=== PATIENT | male | born 1960 | race African-American/Black ===

== ENCOUNTER 2017-01-12 08:46 | Day surgery (SDC) | payer OTHER ==
[~2017-01-12] VITALS: Ht 190.5 cm; Wt 120.1 kg
[2017-01-12] VITALS (8 sets, daily range): BP systolic 154–172; BP diastolic 96–108; PULSE 48–56; RESP 18; TEMP 97.3–98.6; O2SAT 97–100
[2017-01-12] MEDS ORDERED: POVIDONE IODINE 5% (ANTISEPSIS KIT) 4 APPLICATIONS EACH NARE PRN (09:30)
[2017-01-12] MEDS ORDERED: INSULIN HUMAN REGULAR 1,000 UNITS/10 ML VIAL SQ PRN (09:30)
[2017-01-12] MEDS ORDERED: CHLORHEXIDINE GLUCONATE 2 % 1 PACK (2 CLOTHS) TOPICAL PRN (09:30)
[2017-01-12] MEDS ORDERED: METOPROLOL TARTRATE 25 MG TAB PO PRN (09:30)
[2017-01-12] MEDS ORDERED: SODIUM CHLORID 0.9% 500 ML IV PRN (09:30)
[2017-01-12] MEDS ORDERED: LACTATED RINGER'S 1000 ML IV PRN (09:30)
[2017-01-12 09:44] LABS: AUTOMATED NEUTROPHIL # 4.4 TH/MM3 (1.8-7.7); BASOPHIL % 0.6 % (0.0-2.0); EOSINOPHIL # 0.1 TH/MM3 (0-0.4); EOSINOPHIL % 0.8 % (0.0-4.0); HEMATOCRIT 39.4 % (39.0-51.0); HEMO FLAGS DIFF FINAL; LYMPH % 14.9 % (9.0-44.0); LYMPHOCYTE # 0.9 TH/MM3 (1.0-4.8); MEAN CELL VOLUME 88.3 FL (80.0-100.0); MEAN CORPUSCULAR HEMOGLOBIN 30.2 PG (27.0-34.0); MEAN CORPUSCULAR HGB CONC 34.2 % (32.0-36.0); NEUT % 74.7 % (16.0-70.0); PLATELET COUNT 140 TH/MM3 (150-450); RED BLOOD COUNT 4.47 MIL/MM3 (4.50-5.90); RED CELL DISTRIBUTION WIDTH 14.9 % (11.6-17.2); WHITE BLOOD COUNT 5.9 TH/MM3 (4.0-11.0)
[2017-01-12] MEDS ORDERED: LISI-515 PO (09:45)
[2017-01-12] MEDS ORDERED: CHLORHEXIDINE GLUCONATE 2 % 1 PACK (2 CLOTHS) TOPICAL SCH (09:45)
[2017-01-12] MEDS ORDERED: AMLO5TAB2 PO (09:45)
[2017-01-12] MEDS ORDERED: POVIDONE IODINE 5% (ANTISEPSIS KIT) 4 APPLICATIONS EACH NARE SCH (09:45)
[2017-01-12] MEDS ORDERED: ASPI1TAB69 PO (09:45)
[2017-01-12] MEDS ORDERED: VANCOMYCIN 1000 MG/NS 250 ML IV SCH ×2 (09:45)
[2017-01-12] MEDS ORDERED: LORazepam 1 MG TAB SL SCH (09:45)
[2017-01-12] MEDS ORDERED: SIMV40TA PO (09:45)
[2017-01-12 09:50] LABS: APTT (PATIENT) 26.3 SEC (24.3-30.1); PROTHROMBIN TIME - PATIENT 11.3 SEC (9.8-11.6)
[2017-01-12] MEDS ORDERED: MUPIROCIN 2% OINT 1 APPLIC/GM SYR NASAL SCH (10:00)
[2017-01-12] MEDS ORDERED: NS 1000 ML IV SCH (10:00)
[2017-01-12 10:05] LABS: BICARBONATE 26.2 MEQ/L (21.0-32.0); POTASSIUM 3.8 MEQ/L (3.5-5.1)
[2017-01-12] MEDS ORDERED: LIDOCAINE HCL 2% 50 ML VIAL ONE (13:14)
[2017-01-12] MEDS ORDERED: VANCOMYCIN 500 MG VIAL ONE (13:14)
[2017-01-12] MEDS ORDERED: DO NOT ADM ANY ANTICOAGULANT DRUGS PRN (13:30)
--- NOTE | 2017-01-12 14:10 | PD.CARD ---
DUAL PPM IMPLANTATION PROCEDURE DATE: Jan 12, 2017 DUAL PPM IMPLANTATION PROCEDURE: Dual chamber permanent pacemaker implantation. INDICATIONS FOR PROCEDURE: Mr. Jerez is a 56 -year-old male with hx of near syncope, shortness of breath, AV block who undergo pacer insertion. He is not on any negative chronotropic medication. The risks, the nature and the benefit of the procedure were clearly stated to him . The risks include pneumothorax, cardiac perforation, stroke and even . He understood and agreed to proceed. PROCEDURE After written informed consent was obtained, the patient was transferred to the EP lab where he was prepped and draped in the usual sterile fashion. Conscious sedation was initiated and maintained throughout the procedure by the anesthesiologist. Once sedation was verified, the left infraclavicular area was with 2% Xylocaine. Using modified Seldinger technique, the left subclavian vein was cannulated on two occasions and two guidewires were advanced. Then, using a #11 blade scalpel, a 2 cm was made two fingerbreadths below the left clavicle. This incision was then taken down through the deep fascial layer using Bovie cautery and blunt dissection. Into the inferomedial direction, device pocket was dissected, then the wire was dissected into the pocket. A 2- 0 Vicryl suture was placed around the wire to prevent backbleeding. At this point, over the lateral wire, an 7-Italian dilator and introducer was advanced. As the dilator and wire were removed, an active fixation right ventricular pacing and sensing lead was advanced. After adequate pacing and sensing thresholds were obtained, the lead was secured in the pocket using 2-0 Ethibond suture. Then, over the remaining wire, an 7-Italian dilator and introducer was advanced. As the dilator and wire were removed, an active fixation right atrial pacing and sensing lead was advanced. After adequate pacing and sensing thresholds were obtained, the lead was secured into the pocket using 2-0 Ethibond suture. At that point, the pocket was copiously irrigated using antibiotic solution. This was connected to the generator and placed into the pocket. I did proceed with wound closure. The deep fascial layer was approximated using 2-0 Vicryl suture in a continuous fashion. The subcutaneous layer was approximated with 2-0 Vicryl suture in a continuous fashion. The subcuticular layer was approximated with 2-0 Vicryl suture in a continuous fashion. Dermabond adhesive was applied to the wound followed by sterile pressure dressing. There was no complication. The patient tolerated procedure. Blood loss minimal. IMPLANTED HARDWARE The permanent pacemaker is a [employer]ro[employer]. Model # 293025 serial number [id number]. The right atrial pacing and sensing lead is a [employer]ron[employer] model number 769206, serial number [id number]. The right ventricular pacing and sensing lead is a [employer]ik model number [id number] , serial number [id number]. THRESHOLDS The right atrial pacing threshold in the bipolar mode was 1.0 @ 0.5 milliseconds, lead impedance 487 ohms and P-wave at 2.1 millivolts. The right ventricular pacing threshold in the bipolar mode was 0.6 @ 0.4 milliseconds, lead impedance 665 ohms and R-wave at the 14.5 millivolts. SETTINGS The device was set in the DDD60, upper limit 140 beats per minute. Hysteresis and mode switch are on. CONCLUSIONS: Successful permanent pacemaker implantation, COMMENT AND RECOMMENDATION The patient will be transferred to the telemetry unit. He will be observed. When stable, he can be discharged home. Sae Padilla MD Jan 12, 2017 14:10
[2017-01-12] MEDS ORDERED: ONDANSETRON HCL 4 MG/2 ML VIAL IV PRN (14:15)
[2017-01-12] MEDS ORDERED: TEMAZEPAM 15 MG CAP PO PRN (14:15)
[2017-01-12] MEDS ORDERED: ACETAMINOPHEN/CODEINE 300 MG/30 MG TAB PO PRN (14:15)
[2017-01-12] MEDS ORDERED: ceFAZolin 2 GM PREMIX 50 ML IV SCH (14:15)
--- NOTE | 2017-01-12 15:34 | RADRPT ---
EXAM DATE/TIME: 01/12/2017 15:11 [place] COMPARISON: No previous studies available for comparison. INDICATIONS : Post pacemaker MEDICAL HISTORY : Hypertension SURGICAL HISTORY : None. ENCOUNTER: Initial ACUITY: 1 day PAIN SCORE: 10 LOCATION: Bilateral chest FINDINGS: A single view of the chest demonstrates the lungs to be symmetrically aerated without evidence of mas s, infiltrate or effusion. The cardiomediastinal contours are unremarkable. Osseous structures are intact. CONCLUSION: Normal examination. Left subclavian bipolar pacer in good position Shmuel Abbott MD on January 12, 2017 at 15:31 Board Certified Radiologist. This report was verified electronically.
[2017-01-12] MEDS ORDERED: LABETALOL HCL 100 MG/20 ML VIAL IV PRN (15:45)
[2017-01-12] MEDS ORDERED: ENALAPRILAT 1.25 MG/ML VIAL IV PUSH PRN (15:45)
[2017-01-12] MEDS ORDERED: PROPOFOL 200 MG/20 ML AMP OTHER ONE (16:44)
--- NOTE | 2017-01-12 17:18 | EKG ---
Date Performed: 01/12/2017 Time Performed: 15:14:42 PTAGE: 56 years EKG: Probable atrial sensed, ventricular paced rhythm Abnormal ECG PREVIOUS TRACING : 01/12/2017 09.48 Compared to previous tracing, ventricular pacing is now christopher dent. DOCTOR: Stephen Fried Interpretating Date/Time 01/12/2017 17:16:40
--- NOTE | 2017-01-12 17:23 | EKG ---
Date Performed: 01/12/2017 Time Performed: 09:48:10 PTAGE: 56 years EKG: Sinus bradycardia with 1st degree A-V block Prolonged QT interval Consider left atrial abno rmality LVH with secondary repolarization abnormality Extensive ST-T changes may be due to hypertroph y and/or ischemia Abnormal ECG NO PREVIOUS TRACING DOCTOR: Jaquan Galindo Interpretating Date/Time 01/12/2017 17:21:54
[2017-01-12] MEDS: ASPIRIN EC 81 MG TABEC PO SCH (18:07)
[2017-01-12] MEDS: LISINOPRIL 20 MG TAB PO SCH (18:08)
[2017-01-12] MEDS: ACETAMINOPHEN/CODEINE 300 MG/30 MG TAB PO PRN ×2 (18:08→22:33)
[2017-01-12] MEDS: amLODIPine BESYLATE 5 MG TAB PO SCH (18:08)
[2017-01-12] MEDS ORDERED: PRAVASTATIN SOD 80 MG TAB PO SCH (21:00)
[2017-01-13] VITALS (9 sets, daily range): BP systolic 149–159; BP diastolic 98–108; PULSE 48–54; RESP 16–18; TEMP 97.7; O2SAT 98
[2017-01-13] MEDS: ACETAMINOPHEN/CODEINE 300 MG/30 MG TAB PO PRN (04:07)
[2017-01-13] MEDS ORDERED: LEVOFLOXACIN 500 MG PREMIX INJ 100 ML IV ONE (08:00)
[2017-01-13] MEDS: amLODIPine BESYLATE 5 MG TAB PO SCH (08:12)
[2017-01-13] MEDS: LISINOPRIL 20 MG TAB PO SCH (08:12)
[2017-01-13] MEDS: ASPIRIN EC 81 MG TABEC PO SCH (08:13)
--- NOTE | 2017-01-13 08:25 | PD.CARD.PN ---
Subjective Subjective Remarks Denies pain, dyspnea. Objective Medications Item Value Date Time Pravastatin Sodium 80 mg 01/12/17 2100 (Pravachol) HS/PO 01/12/172144 Amlodipine 5 mg 01/12/17 1800 Besylate DAILY/PO 01/13/17 08 (Norvasc) Aspirin 81 mg 01/12/17 1800 (Ecotrin Ec) DAILY/PO 01/13/17812 Lisinopril 20 mg 01/12/17 1800 (Prinivil) DAILY/PO 01/13/17 08 Vital Signs / I&O Vital Signs Date Time Temp Pulse Resp B/P Pulse Ox O2 Delivery O2 Flow Rate FiO2 01/13/17 08:00 50 01/13/17 07:00 97.7 48 16 149/98 98 01/13/17 07:00 49 01/13/17 06:00 52 01/13/17 05:00 52 01/13/17 04:00 52 01/13/17 03:00 50 01/13/17 03:00 97.7 54 18 159/108 98 01/13/17 02:00 48 01/13/17 01:00 50 01/13/17 00:00 48 01/12/17 23:00 50 01/12/17 23:00 97.3 50 18 166/108 99 01/12/17 22:00 50 01/12/17 21:00 48 01/12/17 20:00 56 01/12/17 19:00 98.2 55 18 172/106 99 01/12/17 19:00 51 01/12/17 18:03 56 01/12/17 16:35 97.5 50 18 156/101 100 01/12/17 14:27 100 Room Air 01/12/17 09:28 98.6 48 18 154/96 97 I/O 01/12/17 01/12/17 01/12/17 01/13/17 01/13/17 01/13/17 07:00 15:00 23:00 07:00 15:00 23:00 Intake Total 240 ml 700 ml Output Total 1350 ml Balance 240 ml -650 ml Intake Oral 240 ml 700 ml Output Urine Total 1350 ml Physical Exam Pacer site clean, dry, intact, nontender. No hematoma. Laboratory Laboratory Tests Test 01/12/17 09:20 White Blood Count 5.9 TH/MM3 Red Blood Count 4.47 MIL/MM3 Hemoglobin 13.5 GM/DL Hematocrit 39.4 % Mean Corpuscular Volume 88.3 FL Mean Corpuscular Hemoglobin 30.2 PG Mean Corpuscular Hemoglobin 34.2 % Concent Red Cell Distribution Width 14.9 % Platelet Count 140 TH/MM3 Mean Platelet Volume 9.8 FL Neutrophils (%) (Auto) 74.7 % Lymphocytes (%) (Auto) 14.9 % Monocytes (%) (Auto) 9.0 % Eosinophils (%) (Auto) 0.8 % Basophils (%) (Auto) 0.6 % Neutrophils # (Auto) 4.4 TH/MM3 Lymphocytes # (Auto) 0.9 TH/MM3 Monocytes # (Auto) 0.5 TH/MM3 Eosinophils # (Auto) 0.1 TH/MM3 Basophils # (Auto) 0.0 TH/MM3 CBC Comment DIFF FINAL Differential Comment Prothrombin Time 11.3 SEC Prothromb Time International 1.0 RATIO Ratio Activated Partial 26.3 SEC Thromboplast Time Sodium Level 140 MEQ/L Potassium Level 3.8 MEQ/L Chloride Level 107 MEQ/L Carbon Dioxide Level 26.2 MEQ/L Anion Gap 7 MEQ/L Blood Urea Nitrogen 16 MG/DL Creatinine 1.17 MG/DL Estimat Glomerular Filtration 79 ML/MIN Rate Random Glucose 99 MG/DL Calcium Level 8.8 MG/DL Blood Type A POSITIVE Antibody Screen NEGATIVE Blood Bank Comment Imaging Last 48 hours Impressions Chest X-Ray 01/12/17 0000 Signed Impressions: Service Date/Time: December 15:11 - CONCLUSION: Normal examination. Left subclavian bipolar pacer in good position Shmuel Abbott MD Assessment and Plan Problem List: (1) Status post placement of cardiac pacemaker Assessment and Plan: Stable s/p pacer implant by Dr. Padilla. Pacer site OK. Pacer re-interrogation shows stable, good pacing parameters. To discharge today , same home medications plus Levaquin 500 mg qd for 5 days, one week f/u for incision recheck. (2) Hypertension Assessment and Plan: Elevated BP's. Rec close f/u with PCP as outpatient. Code Status full code Discussed Condition With patient Problem Qualifiers (1) Hypertension: Qualified Code: I10 - Essential hypertension Stephen Fried MD Jan 13, 2017 08:24
[2017-01-13] MEDS ORDERED: LEVA500T PO (08:27)
[2017-01-13] MEDS ORDERED: HYDR-3366 PO (08:46)
--- NOTE | 2017-01-13 09:36 | EKG ---
Date Performed: 01/13/2017 Time Performed: 05:28:48 PTAGE: 56 years EKG: Sinus rhythm with first degree AV block Inferior/lateral ST-T changes may be due to myocardial ischemia Abnormal ECG NO PREVIOUS TRACING DOCTOR: Stephen Fried Interpretating Date/Time 01/13/2017 09:36:07
== END 2017-01-13 09:35 | disposition home or self-care (01) ==
LOC: HDOC 08:46 → HDIC 08:46 → HCIS 17:47 → HDOC 01-13 09:35 → HCIS 01-13 13:50
PROVIDERS: ATTEND Internal Medicine Interventional Cardiology
DX: I49.5 Sick sinus syndrome (principal); I44.0 Atrioventricular block, first degree; I51.7 Cardiomegaly; I10 Essential (primary) hypertension; R06.02 Shortness of breath
CPT/HCPCS: 00530; 33208; 71010; 80048; 85025; 85610; 85730; 86850; 86900; 86901; 93005; C1785; C1898; J1956; J3370